=== PATIENT | male | born 1985 | race Caucasian/White ===

== ENCOUNTER 2025-04-20 11:01 | Emergency (ER) | payer OTHER ==
[2025-04-20] MEDS ORDERED: Ketorolac Tromethamine 30 MG (1 mL) VIAL ONE (11:36)
== END 2025-04-20 12:23 | disposition home or self-care (01) ==
LOC: NAV ERS 11:01
DX: S90.31XA Contusion of right foot, initial encounter (principal); W22.8XXA Striking against or struck by other objects, initial encounter
CPT/HCPCS: 96372; 99283; J1885